=== PATIENT | male | born 1935 | race Caucasian/White ===

== ENCOUNTER 2017-03-24 09:39 | Day surgery (SDC) | payer OTHER ==
[~2017-03-24] VITALS: Ht 180.3 cm; Wt 99.1 kg
[~2017-03-24 09:39] MED LIST: ASPIR 8181 M1 PO; ATORVASTATIN CA80 MG PO; CEROVITE SENIO1 EACH PO; CITALOPRAM HBR10 MG PO; CLOPIDOGREL75 MG PO; CO Q-10100 MG PO; COLACE100 MG PO; CYANOCOBALAM1000 MCG PO; FIBER THERAPY0.52 GM PO; FISH OIL 1,2001 EAC4 PO; GLUCOSAMINE1000 MG PO; IMDUR30 MG PO; IRON325 M1 PO; METOPROLOL SUCC25 MG PO; NIFEDIPINE ER90 MG PO; NITROGLYCERIN0.4 MG SL; NORVASC10 MG PO; OMEPRAZOLE20 M2 PO; OMEPRAZOLE20 MG PO; OXYCODONE HCL5 MG PO; PROAIR HFA8.5 GM IH; PROBIOTIC1 EAC1 PO; TAMSULOSIN HCL0.4 MG PO; VITAMIN D31000 UNI2 PO; ZANTAC150 MG PO
[2017-03-24 10:22] VITALS: BP 127/74
[2017-03-24 14:30] VITALS: BP 146/67
[2017-03-24 19:34] VITALS: BP 132/78
[2017-03-24 23:40] VITALS: BP 148/78
[2017-03-25 03:45] VITALS: BP 124/78
[2017-03-25 07:16] VITALS: BP 182/84
[2017-03-25 11:36] VITALS: BP 158/76
[2017-03-25] MEDS ORDERED: TYLENOL REGULA325 MG PO (12:13)
[2017-03-25] MEDS ORDERED: OXYCODONE HCL5 MG PO (12:13)
[2017-03-25] MEDS ORDERED: IBUPROFEN400 MG PO (12:13)
== END 2017-03-25 13:07 | disposition home or self-care (01) ==
LOC: SDC 09:39 → 2SOUTH 13:30 → ENRESERV 13:31 → 2EAST 14:25
PROC: 0WUF0JZ Supplement Abdominal Wall with Synthetic Substitute, Open Approach (ICD-10-PCS; principal; 2017-03-24)
DX: K43.2 Incisional hernia without obstruction or gangrene (principal); Z98.890 Other specified postprocedural states; I71.4 Abdominal aortic aneurysm, without rupture; I25.10 Atherosclerotic heart disease of native coronary artery without angina pectoris; J44.9 Chronic obstructive pulmonary disease, unspecified; E78.5 Hyperlipidemia, unspecified; G47.30 Sleep apnea, unspecified; Z87.11 Personal history of peptic ulcer disease; Z95.1 Presence of aortocoronary bypass graft; Z95.5 Presence of coronary angioplasty implant and graft; I25.2 Old myocardial infarction; N18.9 Chronic kidney disease, unspecified; Z87.891 Personal history of nicotine dependence; Z95.0 Presence of cardiac pacemaker; Z79.82 Long term (current) use of aspirin
CPT/HCPCS: 94760; 94799; 99202; C1781; G0378; J0131; J0690; J1100; J1170; J1644; J2250; J2405; J2710; J3010; J3480